=== PATIENT | female | born 1990 ===

== ENCOUNTER 2017-08-11 00:28 | Emergency (ER) | payer MEDICAID ==
[2017-08-11 00:45] VITALS: BP 122/78; PULSE 68; RESP 16; TEMP 98; O2SAT 98
--- NOTE | 2017-08-11 01:36 | ED PDOC ---
HPI: Skin/Bite Injury Time Seen by Provider: 08/11/17 00:36 Chief Complaint (Nursing): Allergic Reaction Chief Complaint (Provider): Lip swelling History Per: Patient History/Exam Limitations: no limitations Onset/Duration Of Symptoms: Hrs Current Symptoms Are (Timing): Still Present Quality Of Symptoms: Swollen Additional Complaint(s): Patient is a 27 y/o female with no past medical history, who presents to the ED complaining of swelling on left upper lip that began about an hour ago. Patient reports she thinks she may have been bitten by a bug, but says she did not see or feel a bug. She currently wears braces and smokes a few cigarettes a day. Patient denies any recent trauma to the lip, new foods or lotions, trouble breathing, chest pain, vomiting, or any other associated symptoms of complaints. PMD:Provider TBD Past Medical History Reviewed: Historical Data, Nursing Documentation, Vital Signs Vital Signs: Last Vital Signs Temp 98 F 08/11/17 00:42 Pulse 68 08/11/17 00:42 Resp 16 08/11/17 00:42 BP 122/78 08/11/17 00:42 Pulse Ox 98 08/11/17 00:42 - Medical History PMH: No Chronic Diseases - Surgical History Surgical History: No Surg Hx - Family History Family History: States: No Known Family Hx, Unknown Family Hx - Social History Current smoker - smoking cessation education provided: Yes (< 10 cigarettes a day, 7 years) Alcohol: Social Drugs: Denies - Immunization History Hx Tetanus Toxoid Vaccination: Yes Hx Influenza Vaccination: No Hx Pneumococcal Vaccination: No - Home Medications Home Medications: Ambulatory Orders Medication Instructions Recorded Acetaminophen with Codeine 1 tab PO Q8 PRN #20 tab 10/30/15 [Tylenol with Codeine No. 3 300 mg-30 mg] - Allergies Allergies/Adverse Reactions: Allergies Allergy/AdvReac Type Severity Reaction Status Date / Time No Known Allergies Allergy Verified 08/11/17 00:42 Review of Systems ROS Statement: Except As Marked, All Systems Reviewed And Found Negative ENT: Positive for: Mouth Swelling (Left upper lip swelling) Cardiovascular: Negative for: Chest Pain Respiratory: Negative for: Shortness of Breath Gastrointestinal: Negative for: Vomiting Physical Exam - Reviewed Nursing Documentation Reviewed: Yes Vital Signs Reviewed: Yes - Physical Exam Appears: Positive for: No Acute Distress Head Exam: Positive for: ATRAUMATIC, NORMOCEPHALIC ENT: Positive for: Other (swelling on left upper lip, no dental abscess, no open skin or signs of trauma) Cardiovascular/Chest: Positive for: Regular Rate, Rhythm. Negative for: Murmur Respiratory: Positive for: Normal Breath Sounds. Negative for: Respiratory Distress Neurologic/Psych: Positive for: Alert, Oriented (x3). Negative for: Motor/ Sensory Deficits - ECG O2 Sat by Pulse Oximetry: 98 (RA) Pulse Ox Interpretation: Normal Medical Decision Making Medical Decision Making: Time: :06 Initial Impression: Localized lip swelling Initial Plan: -Benadryl 25mg PO Time: :24 -Patient requests to be discharged home. Follow up with primary care physician tomorrow Clinical Impression: Localized lip swelling Upon provider evaluation patient is medically stable, and requires no further treatment in the ED at this time. Patient will be discharged with Rx for Benadryl 25mg PO. Counseling was provided and all questions were answered regarding diagnosis and need for follow up with primary care physician. There is agreement to discharge plan. Return if symptoms persist or worsen. Scribe Attestation: Documented by Abner Greenberg, acting as a scribe for Li Zaldivar MD Provider Scribe Attestation: All medical record entries made by the Scribe were at my direction and personally dictated by me. I have reviewed the chart and agree that the record accurately reflects my personal performance of the history, physical exam, medical decision making, and the department course for this patient. I have also personally directed, reviewed, and agree with the discharge instructions and disposition. Disposition - Clinical Impression Clinical Impression: Lip swelling - Disposition Referrals: [facility] [Outside] [facility] [Outside] Rudolph Alvarado MD [Primary Care Provider] - Disposition: Routine/Home Disposition Time: :24 Condition: IMPROVED Additional Instructions: follow up with your primary doctor tomorrow take benadryl every 6 hours as needed for swelling return to the ED with any worsening or concerning symptoms. Forms: [facility] (Welsh)
== END 2017-08-11 01:31 | disposition home or self-care (01) ==
LOC: H.ER 00:28
DX: T78.40XA Allergy, unspecified, initial encounter (principal)

== ENCOUNTER 2018-07-02 13:02 | Emergency (ER) | payer MEDICAID ==
[2018-07-02 13:11] VITALS: O2SAT 100
--- NOTE | 2018-07-02 13:57 | ED PDOC ---
HPI: Abdomen Time Seen by Provider: 07/02/18 13:34 Chief Complaint (Nursing): Dizziness/Lightheaded History Per: Patient Onset/Duration Of Symptoms: Days (4) Current Symptoms Are (Timing): Intermittent Episodes Severity: Mild Associated Symptoms: Nausea, Vomiting. denies: Fever, Diarrhea Additional Complaint(s): Nausea and vomting x 4 days. Denies abd pain, no diarrhea, fever or bloody stools Past Medical History Vital Signs: Last Vital Signs Temp 97.1 F L 07/02/18 13:09 Pulse 55 L 07/02/18 13:09 Resp 16 07/02/18 13:09 BP 128/88 07/02/18 13:09 Pulse Ox 100 07/02/18 13:57 - Medical History PMH: No Chronic Diseases - Family History Family History: States: Unknown Family Hx - Immunization History Hx Tetanus Toxoid Vaccination: Yes Hx Influenza Vaccination: No Hx Pneumococcal Vaccination: No - Home Medications Home Medications: Ambulatory Orders Medication Instructions Recorded Acetaminophen with Codeine 1 tab PO Q8 PRN #20 tab 10/30/15 [Tylenol with Codeine No. 3 300 mg-30 mg] Ondansetron [Zofran] 4 mg PO Q8H #10 tab 07/02/18 - Allergies Allergies/Adverse Reactions: Allergies Allergy/AdvReac Type Severity Reaction Status Date / Time No Known Allergies Allergy Verified 08/11/17 00:42 Review of Systems Constitutional: Negative for: Fever Gastrointestinal: Positive for: Nausea, Vomiting. Negative for: Abdominal Pain , Diarrhea Genitourinary Female: Negative for: Dysuria, Frequency Physical Exam - Physical Exam Appears: Positive for: Non-toxic, No Acute Distress Skin: Positive for: Normal Color, Warm, DRY Gastrointestinal/Abdominal: Positive for: Bowel Sounds, Soft. Negative for: Tenderness Back: Negative for: L CVA Tenderness, R CVA Tenderness Extremity: Positive for: Normal ROM Neurologic/Psych: Positive for: Alert, Oriented - Laboratory Results Result Diagrams: 07/02/18 14:42 07/02/18 14:42 - ECG O2 Sat by Pulse Oximetry: 100 Disposition - Clinical Impression Clinical Impression: Gastritis - Patient ED Disposition Is Patient to be Admitted: No Counseled Patient/Family Regarding: Studies Performed, Diagnosis, Need For Followup, Rx Given - Disposition Referrals: [facility] [Outside] Disposition: Routine/Home Disposition Time: 15:18 Condition: FAIR Prescriptions: Ondansetron [Zofran] 4 mg PO Q8H #10 tab Instructions: Gastritis Forms: [facility] (Georgian)
[2018-07-02] MEDS: Sodium Chloride 0.9% 1,000 ML IV STA (14:10)
[2018-07-02 15:01] LABS: BASO # 0.1 K/uL (0.0-0.2); BASO % 0.6 % (0.0-2.0); EOS % 0.4 % (0.0-4.0); HEMOGLOBIN 13.6 g/dL (12.0-16.0); LYMPH # 1.3 K/uL (1.0-4.3); LYMPH % 15.7 % (20.0-40.0); MEAN CELL VOLUME 85.9 fl (81.0-99.0); MEAN CORPUSCULAR HEMOGLOBIN 27.9 pg (27.0-31.0); MEAN CORPUSCULAR HGB CONC 32.4 g/dL (33.0-37.0); MEAN PLATELET VOLUME 11.9 fl (7.2-11.7); MONO # 0.3 K/uL (0.0-0.8); MONO % 4.1 % (0.0-10.0); NEUT # 6.5 K/uL (1.8-7.0); NEUT % 79.2 % (50.0-75.0); NRBC % 0.1 % (0.0-0.0); RBC 4.86 Mil/uL (3.80-5.20); RED CELL DISTRIBUTION WIDTH 18.1 % (11.5-14.5); WHITE BLOOD COUNT 8.2 K/uL (4.8-10.8)
[2018-07-02 15:03] LABS: ALB/GLOB RATIO 1.2 (1.0-2.1); ALBUMIN 4.4 g/dL (3.5-5.0); ALT/SGPT 22 U/L (9-52); AST/SGOT 24 U/L (14-36); BLOOD UREA NITROGEN 12 mg/dl (7-17); CALCIUM 9.5 mg/dL (8.4-10.2); GFR NON-AFRICAN AMERICAN > 60
[2018-07-02 16:00] VITALS: BP 108/78; PULSE 68; RESP 18; TEMP 98.3
== END 2018-07-02 16:11 | disposition home or self-care (01) ==
LOC: H.ER 13:02
DX: K29.70 Gastritis, unspecified, without bleeding (principal)
CPT/HCPCS: 80053; 81025; 85025; 96374; 99285; J2405; J7030

== ENCOUNTER 2019-02-04 22:11 | Emergency (ER) | payer OTHER, MEDICAID ==
[2019-02-04 22:24] VITALS: RESP 16; O2SAT 100
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
[2019-02-05 00:34] VITALS: BP 120/68; PULSE 80; TEMP 98.1
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
== END 2019-02-05 00:25 | disposition home or self-care (01) ==
LOC: H.ER 22:11
DX: S16.1XXA Strain of muscle, fascia and tendon at neck level, initial encounter (principal); S39.012A Strain of muscle, fascia and tendon of lower back, initial encounter; V43.52XA Car driver injured in collision with other type car in traffic accident, initial encounter; Y92.410 Unspecified street and highway as the place of occurrence of the external cause